=== PATIENT | male | born 1950 | race Caucasian/White ===

== ENCOUNTER 2021-03-23 16:17 | Inpatient (IN) ==
[2021-03-23] MEDS ORDERED: 0.9 % Sodium Chloride 1,000 ML IVC ONE ×2 (16:31→17:45)
[2021-03-23 16:56] LABS: VBG HCO3 27 mEq/L (21-27); VBG PCO2 42 mmHg (41-51); VBG PH 7.42 pH Units (7.32-7.42); VBG PO2 52 mmHg (25-50)
[2021-03-23 17:25] LABS: Magnesium 1.7 mg/dL (1.6-2.6); Phosphorous 4.1 mg/dL (2.7-4.5); Troponin I 0.04 ng/mL (< 0.04)
[2021-03-23] MEDS ORDERED: Aspirin 81 MG TAB.CHEW PO STA (17:40)
[2021-03-23] MEDS ORDERED: 0.9 % Sodium Chloride w KCl 20 MEQ/1,000 ML MLS IVC SCH ×2 (17:45→18:15)
[2021-03-23] MEDS ORDERED: Acetaminophen 325 MG TABLET PO PRN (18:14)
[2021-03-23] MEDS ORDERED: Ondansetron 4 MG/2 ML VIAL IVP PRN (18:14)
[2021-03-23] MEDS ORDERED: Insulin Regular, Human 100 UNIT/ML IV PRN (18:18)
[2021-03-23] MEDS ORDERED: D5% in 0.45% NACL w KCl 20 MEQ/1,000 ML MLS IVC PRN (18:18)
[2021-03-23] MEDS ORDERED: *HR* Dextrose 50 % in Water (Vial) 50 ML VIAL IVP PRN ×2 (18:18→20:18)
[2021-03-23] MEDS ORDERED: 0.45 % Sodium Chloride w/KCl 20 MEQ/1,000 ML MLS IVC SCH (18:30)
[2021-03-23 19:08] LABS: Basophils # 0.1 K/mcL (0.0-0.2); Basophils % 0.4 %; Eosinophils # 0.1 K/mcL (0.0-0.6); Eosinophils % 0.7 %; Hematocrit 43.2 % (37.5-50.1); Hemoglobin 14.8 g/dL (12.9-16.9); Immature Granulocytes % 0.2 % (0-4); Lymphocytes # 2.3 K/mcL (0.6-4.6); Lymphocytes % 20.7 %; Mean Corpuscular HGB Conc 34.3 g/dL (31.6-35.5); Mean Corpuscular Hemoglobin 30.5 pg (28.0-33.3); Mean Corpuscular Volume 88.9 fL (83.0-100.0); Mean Platelet Volume 10.8 fL (9.4-12.4); Monocytes % 8.5 %; Neutrophils # 7.8 K/mcL (1.6-8.9); Platelet Count 210 K/mcL (140-400); Red Blood Count 4.86 M/mcL (4.19-5.50); Red Cell Distribution Width 12.2 % (11.5-14.5); Segmented Neutrophils % 69.5 %; White Blood Count 11.2 K/mcL (4.3-11.1)
[2021-03-23 19:29] LABS: BUN/Creatinine Ratio 10 (6-26); Blood Urea Nitrogen 8 mg/dL (8-23); Calcium 8.6 mg/dL (8.6-10.3); Carbon Dioxide 26 mEq/L (23-29); Chloride 98 mEq/L (98-107); Glucose 271 mg/dL (70-105); Osmolality,Calculated 286 (280-300); Potassium 3.3 mEq/L (3.5-5.1); Sodium 134 mEq/L (136-145); eGFR For African Americans > 60 (> 60); eGFR For Non-African Americans > 60 (> 60)
[2021-03-23] MEDS ORDERED: D5% in Water 1,000 ML IVC PRN (20:18)
[2021-03-23] MEDS ORDERED: Dextrose Gel 15 GM/37.5 ML TUBE PO PRN ×2 (20:18)
[2021-03-23 20:24] LABS: Adenovirus Not Detected (Not Detect); Bordetella Pertussis Not Detected (Not Detect); Chlamydophila pneumoniae Not Detected (Not Detect); Coronavirus 229E Not Detected (Not Detect); Coronavirus HKU1 Not Detected (Not Detect); Coronavirus NL63 Not Detected (Not Detect); Coronavirus OC43 Not Detected (Not Detect); Human Metapneumovirus Not Detected (Not Detect); Human Rhinovirus/Enterovirus Not Detected (Not Detect); Influenza A Subtype 2009 H1 Not Detected (Not Detect); Influenza B Not Detected (Not Detect); Mycoplasma pneumoniae Not Detected (Not Detect); Parainfluenza Virus 1 Not Detected (Not Detect); Parainfluenza Virus 2 Not Detected (Not Detect); Parainfluenza Virus 3 Not Detected (Not Detect); Parainfluenza Virus 4 Not Detected (Not Detect); Respiratory Syncytial Virus Not Detected (Not Detect); SARS-CoV-2 Not Detected (Not Detect)
[2021-03-23] MEDS ORDERED: Naloxone 0.4 MG/ML INJ IVP PRN (20:30)
[2021-03-23] MEDS ORDERED: Insulin DETEMIR 100 UNIT/ML X5UNITS SUBQ ONE (20:30)
[2021-03-23] MEDS ORDERED: Perflutren Lipid Microsphere 1.3 ML in 0.9 % Sodium Chloride 8.7 ML IVP PRN (21:51)
[2021-03-23] MEDS: Insulin LISPRO 300 UNITS/3 ML VIAL SUBQ SCH (21:56)
[2021-03-23 23:48] LABS: Bilirubin,Urine Negative (Negative); Blood,Urine Negative (Negative); Clarity,Urine Clear (Clear); Color,Urine Light-Yellow (Yellow); Glucose,Urine (UA) >=1000 mg/dL (Normal); Ketones,Urine Trace mg/dL (Negative); Leukocyte Esterase,Urine Negative (Negative); Mucus,Urine Few per lpf (None-Few); Nitrite,Urine Negative (Negative); Protein,Urine Trace mg/dL (Neg-Trace); RBC,Urine 0-3 per hpf (0-3); Specific Gravity,Urine 1.029 (1.010-1.025); Urobilinogen,Urine Normal (Normal); WBC,Urine 0-3 per hpf (0-3)
[2021-03-23 23:57] LABS: Amphetamine Screen,Urine Negative ng/mL (Cutoff=1000); Barbiturate Screen,Urine Negative ng/mL (Cutoff=200); Benzodiazepines Screen,Urine Negative ng/mL (Cutoff=200); Cannabinoid Screen,Urine Negative ng/mL (Cutoff = 50); Cocaine Screen,Urine Negative ng/mL (Cutoff= 300); Opiate Screen,Urine Negative ng/mL (Cutoff=300); Phencyclidine Screen,Urine Negative ng/mL (Cutoff=25)
[2021-03-24 01:49] LABS: Basophils # 0.1 K/mcL (0.0-0.2); Basophils % 0.6 %; Eosinophils # 0.1 K/mcL (0.0-0.6); Eosinophils % 1.2 %; Hematocrit 46.6 % (37.5-50.1); Hemoglobin 15.5 g/dL (12.9-16.9); Immature Granulocytes % 0.5 % (0-4); Lymphocytes # 3.1 K/mcL (0.6-4.6); Lymphocytes % 28.4 %; Mean Corpuscular HGB Conc 33.3 g/dL (31.6-35.5); Mean Corpuscular Hemoglobin 29.8 pg (28.0-33.3); Mean Corpuscular Volume 89.4 fL (83.0-100.0); Mean Platelet Volume 11.3 fL (9.4-12.4); Monocytes # 0.7 K/mcL (0.0-1.3); Monocytes % 6.5 %; Neutrophils # 6.9 K/mcL (1.6-8.9); Platelet Count 228 K/mcL (140-400); Red Blood Count 5.21 M/mcL (4.19-5.50); Red Cell Distribution Width 12.3 % (11.5-14.5); Segmented Neutrophils % 62.8 %
[2021-03-24 02:05] LABS: BUN/Creatinine Ratio 10 (6-26); Blood Urea Nitrogen 8 mg/dL (8-23); Calcium 9.1 mg/dL (8.6-10.3); Carbon Dioxide 27 mEq/L (23-29); Chloride 98 mEq/L (98-107); Glucose 254 mg/dL (70-105); Magnesium 1.7 mg/dL (1.6-2.6); Osmolality,Calculated 281 (280-300); Phosphorous 2.6 mg/dL (2.7-4.5); Potassium 3.9 mEq/L (3.5-5.1); Sodium 132 mEq/L (136-145); eGFR For African Americans > 60 (> 60); eGFR For Non-African Americans > 60 (> 60)
[2021-03-24] MEDS ORDERED: Insulin LISPRO 300 UNITS/3 ML VIAL SUBQ ONE (02:17)
[2021-03-24] MEDS: *HR* Enoxaparin 40 MG/0.4 ML SYRINGE SQ SCH (07:28)
[2021-03-24] MEDS: Insulin LISPRO 300 UNITS/3 ML VIAL SUBQ SCH ×4 (07:32→21:30)
[2021-03-24] MEDS: Insulin DETEMIR 100 UNIT/ML X5UNITS SUBQ SCH ×2 (09:57→21:30)
[2021-03-24 16:52] LABS: Estimated Average Glucose 461 mg/dl; Hemoglobin A1C 17.7 %
[2021-03-24] MEDS: Nicotine 21 MG PATCH.TD24 TD SCH (17:12)
[2021-03-25] MEDS ORDERED: *HR* LORazepam 2 MG/ML VIAL IVP ONE (01:19)
[2021-03-25 03:24] LABS: Basophils # 0.1 K/mcL (0.0-0.2); Basophils % 0.8 %; Eosinophils # 0.1 K/mcL (0.0-0.6); Eosinophils % 1.1 %; Hematocrit 41.5 % (37.5-50.1); Immature Granulocytes % 0.4 % (0-4); Lymphocytes # 2.1 K/mcL (0.6-4.6); Lymphocytes % 26.3 %; Mean Corpuscular HGB Conc 33.5 g/dL (31.6-35.5); Mean Corpuscular Volume 89.4 fL (83.0-100.0); Mean Platelet Volume 11.1 fL (9.4-12.4); Monocytes # 0.8 K/mcL (0.0-1.3); Monocytes % 9.6 %; Neutrophils # 4.9 K/mcL (1.6-8.9); Platelet Count 196 K/mcL (140-400); Red Blood Count 4.64 M/mcL (4.19-5.50); Red Cell Distribution Width 12.1 % (11.5-14.5); Segmented Neutrophils % 61.8 %; White Blood Count 7.9 K/mcL (4.3-11.1)
[2021-03-25 03:26] LABS: Hemoglobin 13.9 g/dL (12.9-16.9)
[2021-03-25 03:42] LABS: BUN/Creatinine Ratio 15 (6-26); Blood Urea Nitrogen 9 mg/dL (8-23); Calcium 8.4 mg/dL (8.6-10.3); Carbon Dioxide 24 mEq/L (23-29); Chloride 102 mEq/L (98-107); Glucose 233 mg/dL (70-105); Osmolality,Calculated 284 (280-300); Potassium 3.4 mEq/L (3.5-5.1); Sodium 134 mEq/L (136-145); eGFR For African Americans > 60 (> 60); eGFR For Non-African Americans > 60 (> 60)
[2021-03-25] MEDS: *HR* Enoxaparin 40 MG/0.4 ML SYRINGE SQ SCH (08:19)
[2021-03-25] MEDS: Nicotine 21 MG PATCH.TD24 TD SCH (08:20)
[2021-03-25] MEDS: Insulin LISPRO 300 UNITS/3 ML VIAL SUBQ SCH ×4 (08:21→20:26)
[2021-03-25] MEDS: Insulin DETEMIR 100 UNIT/ML X5UNITS SUBQ SCH ×2 (08:24→20:26)
[2021-03-25] MEDS ORDERED: Insulin LISPRO 300 UNITS/3 ML VIAL SUBQ SCH (17:00)
[2021-03-26] MEDS: *HR* Enoxaparin 40 MG/0.4 ML SYRINGE SQ SCH (08:08)
[2021-03-26] MEDS: Nicotine 21 MG PATCH.TD24 TD SCH (09:18)
[2021-03-26] MEDS: Insulin DETEMIR 100 UNIT/ML X5UNITS SUBQ SCH ×2 (09:19→21:35)
[2021-03-26] MEDS: Insulin LISPRO 300 UNITS/3 ML VIAL SUBQ SCH ×6 (09:19→21:34)
[2021-03-26] MEDS ORDERED: Ipratropium/Albuterol Neb 3 ML IH PRN (11:17)
[2021-03-27] MEDS: Insulin LISPRO 300 UNITS/3 ML VIAL SUBQ SCH ×7 (07:32→20:35)
[2021-03-27] MEDS: Insulin DETEMIR 100 UNIT/ML X5UNITS SUBQ SCH ×2 (07:33→20:36)
[2021-03-27] MEDS: *HR* Enoxaparin 40 MG/0.4 ML SYRINGE SQ SCH (07:33)
[2021-03-27] MEDS: Nicotine 21 MG PATCH.TD24 TD SCH (07:33)
[2021-03-27] MEDS ORDERED: Insulin DETEMIR 100 UNIT/ML X5UNITS SUBQ ONE (08:15)
[2021-03-28] MEDS: *HR* Enoxaparin 40 MG/0.4 ML SYRINGE SQ SCH (07:55)
[2021-03-28] MEDS: Nicotine 21 MG PATCH.TD24 TD SCH (07:56)
[2021-03-28] MEDS: Insulin LISPRO 300 UNITS/3 ML VIAL SUBQ SCH ×9 (07:56→21:25)
[2021-03-28] MEDS: Insulin DETEMIR 100 UNIT/ML X5UNITS SUBQ SCH ×2 (07:57→21:23)
[2021-03-29] MEDS: Insulin LISPRO 300 UNITS/3 ML VIAL SUBQ SCH ×7 (08:18→21:37)
[2021-03-29] MEDS: Nicotine 21 MG PATCH.TD24 TD SCH (08:20)
[2021-03-29] MEDS: *HR* Enoxaparin 40 MG/0.4 ML SYRINGE SQ SCH (08:22)
[2021-03-29] MEDS: Insulin DETEMIR 100 UNIT/ML X5UNITS SUBQ SCH ×2 (09:06→21:37)
[2021-03-30] MEDS: Insulin LISPRO 300 UNITS/3 ML VIAL SUBQ SCH ×6 (08:32→16:49)
[2021-03-30] MEDS: *HR* Enoxaparin 40 MG/0.4 ML SYRINGE SQ SCH (08:35)
[2021-03-30] MEDS: Nicotine 21 MG PATCH.TD24 TD SCH (08:35)
[2021-03-30] MEDS: Insulin DETEMIR 100 UNIT/ML X5UNITS SUBQ SCH (08:35)
[2021-03-30 13:17] LABS: Adenovirus Not Detected (Not Detect); Bordetella Pertussis Not Detected (Not Detect); Chlamydophila pneumoniae Not Detected (Not Detect); Coronavirus 229E Not Detected (Not Detect); Coronavirus HKU1 Not Detected (Not Detect); Coronavirus NL63 Not Detected (Not Detect); Coronavirus OC43 Not Detected (Not Detect); Human Metapneumovirus Not Detected (Not Detect); Human Rhinovirus/Enterovirus Not Detected (Not Detect); Influenza A Subtype 2009 H1 Not Detected (Not Detect); Influenza B Not Detected (Not Detect); Mycoplasma pneumoniae Not Detected (Not Detect); Parainfluenza Virus 1 Not Detected (Not Detect); Parainfluenza Virus 2 Not Detected (Not Detect); Parainfluenza Virus 3 Not Detected (Not Detect); Parainfluenza Virus 4 Not Detected (Not Detect); Respiratory Syncytial Virus Not Detected (Not Detect); SARS-CoV-2 Not Detected (Not Detect)
[2021-03-30 18:14] VITALS: BP 136/77
== END 2021-03-30 18:58 | DRG 639 ==
LOC: 2NENU 16:17 → EMEROOARM 16:17 → SUATTDRO 20:26 → 2NENU 21:13
PROVIDERS: ADMIT Student in an Organized Health Care Education/Training Program; ATTEND Internal Medicine